=== PATIENT | female | born 1995 | race Caucasian/White ===

== ENCOUNTER 2018-11-28 18:53 | Outpatient (CLI) | payer MEDICAID | END 2018-11-28 20:55 | disposition home or self-care (01) | LOC: LC 18:53 | PROVIDERS: ATTEND Student in an Organized Health Care Education/Training Program | PROC: 4A1HXCZ Monitoring of Products of Conception, Cardiac Rate, External Approach (ICD-10-PCS; principal; 2018-11-28) | DX: O47.03 False labor before 37 completed weeks of gestation, third trimester (principal); Z3A.36 36 weeks gestation of pregnancy | CPT/HCPCS: 82962 ==

== ENCOUNTER 2018-12-10 06:23 | Inpatient (IN) | payer MEDICAID ==
[2018-12-07 10:21] LABS: ABSOLUTE LYMPHOCYTES (AUTO) 3.2 10^3/uL (0.5-4.7); ABSOLUTE MONOCYTES (AUTO) 0.6 10^3/uL (0.1-1.4); ABSOLUTE NEUT (AUTO) 8.1 10^3/uL (1.7-8.2); BASOPHILS % (AUTO) 0.4 % (0-2); EOSINOPHILS % (AUTO) 0.4 % (0-6); HEMATOCRIT 37.1 % (36.0-47.0); HEMOGLOBIN 12.5 g/dL (12.0-15.5); LYMPHOCYTES % (AUTO) 27.1 % (13-45); MEAN CORPUSCULAR HEMOGLOBIN 29.6 pg (27.0-33.4); MEAN CORPUSCULAR HGB CONC 33.7 g/dL (32.0-36.0); MEAN CORPUSCULAR VOLUME 88 fl (80-97); MONOCYTES % (AUTO) 4.9 % (3-13); PLATELET COUNT 240 10^3/uL (150-450); RED BLOOD COUNT 4.22 10^6/uL (3.72-5.28); SEGMENTED NEUTROPHILS % (AUTO) 67.2 % (42-78); TOTAL CELLS COUNTED % (AUTO) 100 %
[2018-12-07 10:27] LABS: APPEARANCE,URINE CLOUDY; BILIRUBIN,URINE NEGATIVE (NEGATIVE); COLOR,URINE AMBER; GLUCOSE, URINE NEGATIVE (NEGATIVE); KETONES,URINE NEGATIVE (NEGATIVE); LEUKOCYTE ESTERASE,URINE LARGE (NEGATIVE); NITRITE,URINE NEGATIVE (NEGATIVE); PROTEIN,URINE 30 mg/dL (NEGATIVE); URINE SPECIFIC GRAVITY 1.021; UROBILINOGEN,URINE NEGATIVE mg/dL (<2.0)
[2018-12-07 10:37] LABS: URINE AMPHETAMINES SCREEN NEGATIVE; URINE BARBITURATES SCREEN NEGATIVE; URINE BENZODIAZEPINES SCREEN NEGATIVE; URINE COCAINE SCREEN NEGATIVE; URINE MARIJUANA (THC) SCREEN NEGATIVE; URINE METHADONE SCREEN NEGATIVE; URINE PHENCYCLIDINE SCREEN NEGATIVE
[~2018-12-10 06:23] MED LIST: CEFAZOLIN SODIUM 2 GM in DEXTROSE 5%-WATER 100 ML IV PRN; LIDOCAINE 0.5% INJ-PF (5 MG/ML) 50 ML SDV SUBCUT PRN; RINGERS SOLUTION,LACTATED 1,000 ML IV PRN
[2018-12-10] MEDS ORDERED: DIPHENHYDRAMINE HCL 50 MG/ML VIAL IV PRN (08:23)
[2018-12-10] MEDS ORDERED: PROMETHAZINE HCL INJ 25 MG/1 ML VIAL IV PRN ×3 (08:23→11:04)
[2018-12-10] MEDS ORDERED: MEPERIDINE HCL/PF INJ 25 MG/1 ML DISP.SYRIN IV PRN (08:23)
[2018-12-10] MEDS ORDERED: FENTANYL CITRATE INJ/PF 100 MCG/2 ML AMPUL IV PRN ×2 (08:23)
[2018-12-10] MEDS: LACTATED RINGERS 1000 ML IV PRN ×2 (08:47→21:15)
[2018-12-10] MEDS ORDERED: FENTANYL CITRATE INJ/PF 100 MCG/2 ML AMPUL ONE ×2 (09:14→11:09)
[2018-12-10] MEDS ORDERED: OXYTOCIN 10 UNIT/ML VIAL ONE (09:14)
[2018-12-10] MEDS ORDERED: MIDAZOLAM 2 MG/2 ML INJ ONE (09:15)
[2018-12-10] MEDS ORDERED: EPHEDRINE SULFATE INJ 50 MG/1 ML AMPULE ONE (09:15)
[2018-12-10] MEDS ORDERED: ACETAMINOPHEN 1,000 MG/100 ML RTUPB IV PRN (11:04)
[2018-12-10] MEDS ORDERED: OXYCODONE-ACETAMINOPHEN 5-325 MG TABLET PO PRN (11:04)
[2018-12-10] MEDS ORDERED: SIMETHICONE 80 MG TAB.CHEW PO PRN (11:04)
[2018-12-10] MEDS ORDERED: OXYTOCIN/NORMAL SALINE 20 UNIT/1,000 ML RTUINJ IV PRN (11:04)
[2018-12-10] MEDS ORDERED: HYDROMORPHONE HCL INJ/PF 2 MG/ML AMPULE IV PRN (11:04)
[2018-12-10] MEDS ORDERED: ACETAMINOPHEN 325 MG TABLET PO PRN (11:04)
[2018-12-10] MEDS ORDERED: NORMAL SALINE 1000 ML 1,000 ML IV PRN (11:04)
[2018-12-10] MEDS ORDERED: MEASLES,MUMPS&RUBELLA VACC/PF 0.5 ML VIAL SUBCUT PRN (11:04)
[2018-12-10] MEDS ORDERED: DIPH/PERTUSS(ACELL)/TETANUS VAC/PF 0.5 ML SYR (>=10YO) IM PRN (11:04)
[2018-12-10] MEDS: FENTANYL CITRATE INJ/PF 100 MCG/2 ML AMPUL IV PRN ×2 (11:10→12:48)
--- NOTE | 2018-12-10 11:13 | PDOC DELIVERY SUMMARY ---
Delivery Summary - Maternal Hx : III Hx # Term Pregnancies: 1 Hx # Pregnancies: 0 Hx Total # of Abortions (Sponateous & Elective): 1 LYNN: 12/17/18 Gestational Age: 39 Ruptured Membranes: AROM Time of Rupture: 10:26 Fluids: Clear - Delivery Presentation: Vertex Heart Rate Monitoring: Done Pre-Operatively Support Person Present: Yes Location: OR : Scheduled, Repeat Placenta: Within Normal Limits Delivery of Placenta Date: 12/10/18 Delivery of Placenta Time: 10:27 - Medications Type of Anesthesia:: Spinal - Assess and Care Baby 1 Female Delivery of Infant Date: 12/10/18 Delivery of Time: 10:27 at 1 minute: 8 at 5 minutes: 9 Preprinted Number On Band: [id number] Infant Skin to Skin: Yes Skin to Skin (Mins): 2 To Nursery At: 10:33 Mode of Transport: Bassinet - Delivery Personnel International Marketing Specialist: JOANIE ZUNIGA RN: SULMA OWENS MD: MIRNA PITT
--- NOTE | 2018-12-10 11:14 | Operative Report ---
Operative Report DATE OF SURGERY: 12/10/18 PREOPERATIVE DIAGNOSIS: Patient desires repeat to prevent risk of clint rine rupture POSTOPERATIVE DIAGNOSIS: Same OPERATION: Repeat via low transverse uterine incision SURGEON: MIRNA PITT ANESTHESIA: Spinal TISSUE REMOVED OR ALTERED: Placenta COMPLICATIONS: None ESTIMATED BLOOD LOSS: 500 cc INTRAOPERATIVE FINDINGS: Viable female with normal uterus tubes and ovaries PROCEDURE: Patient was taken to the OR and placed in supine position after her spinal anesthesia. She is prepared and draped in sterile fashion. Mason was placed for drainage of the bladder. Low transverse incision was made and carried down the level of the fascia. The fascial incision was made with knife and extended bilaterally with curved Stephens scissors. The fascia was off the rectus muscles using sharp and blunt dissection. The rectus muscles are in the midline. The peritoneum was entered without incident. Bladder blade was placed in uterine segment was identified. A low transverse incision was made creating a bladder flap. Bladder blade was placed low transverse uterine incision was made with the knife and extended with fingertips. The baby was delivered with some fundal pressure. Mouth and nose were suctioned free. The cord is doubly clamped and cut. Baby is passed off to the netting weaver in attendance. The placenta was manually extracted with trailing membranes. The uterus was externalized wrapped in a moist lap sponge. Uterine contents wiped free. Uterus was closed with a running locking layer of 0 chromic suture using the second layer to imbricate the first completing a double layer closure of the uterus. The serosa was closed with a running 2-0 chromic stitch. The pelvis was irrigated and suctioned free of fluid the uterus was replaced in the abdomen. The abdominal wall peritoneum was closed with running 2-0 chromic stitch. Fascia was closed with a running 0 Vicryl in 2 segments. Marino's layer was brought together with 0 plain gut stitch and the skin was closed with running subcuticular 4-0 undyed Vicryl stitch. The wound was dressed mother and baby did well.
[2018-12-10] MEDS ORDERED: ACETAMINOPHEN 1,000 MG/100 ML RTUPB IV ONE (11:16)
[2018-12-10] MEDS ORDERED: HYDROMORPHONE HCL INJ/PF 2 MG/ML AMPULE ONE (11:26)
[2018-12-10] MEDS ORDERED: KETOROLAC TROMETHAMINE INJ/PF 30 MG/1 ML SDV ONE (12:33)
[2018-12-10] MEDS: OXYCODONE-ACETAMINOPHEN 5-325 MG TABLET PO PRN ×2 (14:32→18:44)
[2018-12-10] MEDS: KETOROLAC TROMETHAMINE INJ/PF 30 MG/1 ML SDV IV SCH ×2 (17:13→22:03)
[2018-12-10] MEDS: DOCUSATE SODIUM 100 MG CAPSULE PO SCH (17:35)
[2018-12-11] MEDS: OXYCODONE-ACETAMINOPHEN 5-325 MG TABLET PO PRN ×3 (01:23→14:48)
[2018-12-11] MEDS: KETOROLAC TROMETHAMINE INJ/PF 30 MG/1 ML SDV IV SCH (05:46)
[2018-12-11 06:12] LABS: HEMATOCRIT 28.7 % (36.0-47.0); HEMOGLOBIN 9.8 g/dL (12.0-15.5); MEAN CORPUSCULAR HEMOGLOBIN 30.3 pg (27.0-33.4); MEAN CORPUSCULAR HGB CONC 34.1 g/dL (32.0-36.0); MEAN CORPUSCULAR VOLUME 89 fl (80-97); PLATELET COUNT 189 10^3/uL (150-450); RED BLOOD COUNT 3.23 10^6/uL (3.72-5.28); RED CELL DISTRIBUTION WIDTH 14.5 % (11.5-14.0); WHITE BLOOD COUNT 10.2 10^3/uL (4.0-10.5)
[2018-12-11] MEDS: DOCUSATE SODIUM 100 MG CAPSULE PO SCH ×2 (09:27→17:37)
[2018-12-11] MEDS: PRENATAL VITAMIN W DHA CAPSULE PO SCH (09:27)
--- NOTE | 2018-12-11 09:30 | PDOC PROGRESS REPORT ---
Subjective-OB Progress Note for:: 12/11/18 Subjective: Sitting up in bed, talking very little, pain under control, eating well, no gas, breast/bottle feeding Physical Exam (OB) Vital Signs: Temp Pulse Resp BP Pulse Ox 97.8 F 100 16 109/75 98 12/11/18 08:09 12/11/18 08:09 12/11/18 08:09 12/11/18 08:09 12/11/18 08:09 Intake & Output 12/10/18 12/11/18 12/12/18 06:59 06:59 06:59 Intake Total 1000 Output Total 2300 Balance -1300 - PIH/Pre-Eclampsia Clonus: Negative Headache: Absent Epigastric Pain: No Visual Changes: No - Dressing Removed: No Incision: Dressing - Lochia Lochia Amount: Scant < 10 ml Lochia Color: Rubra/Red - Abdomen Description: Tender, Soft, Round Hernia Present: No Fundal Description: Firm Fundal Height: u/u - u/2 Objective-Diagnostic Laboratory: 12/11/18 05:59 12/11/18 05:59 WBC 10.2 RBC 3.23 L Hgb 9.8 L Hct 28.7 L MCV 89 MCH 30.3 MCHC 34.1 RDW 14.5 H Plt Count 189 Assessment and Plan(PN) - Assessment and Plan (1) Anemia Qualifiers: Other causes of anemia: acute posthemorrhagic Is this a current diagnosis for this admission?: Yes (3) Depression Qualifiers: Depression Type: unspecified Qualified Code(s): F32.9 - Major depressive disorder, single episode, unspecified Is this a current diagnosis for this admission?: Yes (4) Status post repeat low transverse section Is this a current diagnosis for this admission?: Yes - Time Spent with Patient Time with patient: Less than 15 minutes Medications reviewed and adjusted accordingly: Yes - Disposition Anticipated Discharge: Home Within: within 24 hours
[2018-12-11] MEDS ORDERED: (PENDING PHARMACY ID) (Pnv119/Iron Fum/Folic/Docusate [Prenatal 19 Tablet] 1 EACH) PO SCH (10:00)
[2018-12-11] MEDS: IBUPROFEN 800 MG TABLET PO SCH ×3 (13:02→23:30)
[2018-12-12] MEDS: OXYCODONE-ACETAMINOPHEN 5-325 MG TABLET PO PRN (01:33)
[2018-12-12] MEDS: IBUPROFEN 800 MG TABLET PO SCH (05:41)
[2018-12-12 08:19] VITALS: BP 107/63
[2018-12-12] MEDS: DOCUSATE SODIUM 100 MG CAPSULE PO SCH (10:25)
[2018-12-12] MEDS: PRENATAL VITAMIN W DHA CAPSULE PO SCH (10:25)
--- NOTE | 2018-12-12 10:54 | PDOC DISCHARGE SUMMARY ---
Impression - Admit/DC Date/PCP Admission Date/Primary Care Provider: 12/10/18 06:23 MIRNA PITT MD Discharge Date: 12/12/18 - Discharge Diagnosis (1) Status post repeat low transverse section Is this a current diagnosis for this admission?: Yes - Additional Information Resuscitation Status: Full Code Discharge Diet: As Tolerated, Regular Discharge Activity: Activity As Tolerated, Balance Activity w/Rest, No Driving, No Lifting Over 10 Pounds, Pelvic Rest, No tub bath, Walk Frequently Referrals: MIRNA PITT MD [Primary Care Provider] - Prescriptions: Oxycodone HCl/Acetaminophen [Percocet 5-325 mg Tablet] 2 tab PO Q4HP PRN #20 tablet PRN Reason: For Pain Scale 3-5 Ibuprofen [Motrin 800 mg Tablet] 800 mg PO Q8HP PRN #30 tablet PRN Reason: For Pain Scale 1-3 Docusate Sodium [Colace 100 mg Capsule] 100 mg PO BID #60 capsule Ferrous Sulfate [Feosol 325 mg Tablet] 325 mg PO BID #60 tablet Home Medications: [id number]/Iron Fum/Folic/Docusate [ 19 Tablet] 1 each PO DAILY 09/08/18 Docusate Sodium [Colace 100 mg Capsule] 100 mg PO BID #60 capsule 12/12/18 Ferrous Sulfate [Feosol 325 mg Tablet] 325 mg PO BID #60 tablet 12/12/18 Ibuprofen [Motrin 800 mg Tablet] 800 mg PO Q8HP PRN #30 tablet 12/12/18 Oxycodone HCl/Acetaminophen [Percocet 5-325 mg Tablet] 2 tab PO Q4HP PRN #20 tablet 12/12/18 Results Laboratory Results: WBC 10.2 10^3/uL (4.0-10.5) 12/11/18 05:59 RBC 3.23 10^6/uL (3.72-5.28) L 12/11/18 05:59 Hgb 9.8 g/dL (12.0-15.5) L 12/11/18 05:59 Hct 28.7 % (36.0-47.0) L 12/11/18 05:59 MCV 89 fl (80-97) 12/11/18 05:59 MCH 30.3 pg (27.0-33.4) 12/11/18 05:59 MCHC 34.1 g/dL (32.0-36.0) 12/11/18 05:59 RDW 14.5 % (11.5-14.0) H 12/11/18 05:59 Plt Count 189 10^3/uL (150-450) 12/11/18 05:59 Lymph % (Auto) 27.1 % (13-45) 12/07/18 09:25 [place] % (Auto) 4.9 % (3-13) 12/07/18 09:25 Eos % (Auto) 0.4 % (0-6) 12/07/18 09:25 Baso % (Auto) 0.4 % (0-2) 12/07/18 09:25 Absolute Neuts (auto) 8.1 10^3/uL (1.7-8.2) 12/07/18 09:25 Absolute Lymphs (auto) 3.2 10^3/uL (0.5-4.7) 12/07/18 09:25 Absolute Monos (auto) 0.6 10^3/uL (0.1-1.4) 12/07/18 09:25 Absolute Eos (auto) 0.0 10^3/uL (0.0-0.6) 12/07/18 09:25 Absolute Basos (auto) 0.0 10^3/uL (0.0-0.2) 12/07/18 09:25 Seg Neutrophils % 67.2 % (42-78) 12/07/18 09:25 Urine Color ALVIN 12/07/18 09:17 Urine Appearance CLOUDY 12/07/18 09:17 Urine pH 6.0 (5.0-9.0) 12/07/18 09:17 Ur Specific [place] 1.021 12/07/18 09:17 Urine Protein 30 mg/dL (NEGATIVE) H 12/07/18 09:17 Urine Glucose (UA) NEGATIVE mg/dL (NEGATIVE) 12/07/18 09:17 Urine Ketones NEGATIVE mg/dL (NEGATIVE) 12/07/18 09:17 Urine Blood SMALL (NEGATIVE) H 12/07/18 09:17 Urine Nitrite NEGATIVE (NEGATIVE) 12/07/18 09:17 Urine Bilirubin NEGATIVE (NEGATIVE) 12/07/18 09:17 Urine Urobilinogen NEGATIVE mg/dL (<2.0) 12/07/18 09:17 Ur Leukocyte Esterase LARGE (NEGATIVE) H 12/07/18 09:17 Urine WBC (Auto) 56 /HPF 12/07/18 09:17 Urine RBC (Auto) 7 /HPF 12/07/18 09:17 Urine Bacteria (Auto) 1+ /HPF 12/07/18 09:17 Squamous Epi Cells Auto 53 /HPF 12/07/18 09:17 U Non-Squamous Epis Auto 2 /HPF 12/07/18 09:17 Urine Mucus (Auto) MOD /LPF 12/07/18 09:17 Urine Ascorbic Acid NEGATIVE (NEGATIVE) 12/07/18 09:17 Urine Opiates Screen NEGATIVE 12/07/18 09:17 Urine Methadone Screen NEGATIVE 12/07/18 09:17 Ur Barbiturates Screen NEGATIVE 12/07/18 09:17 Ur Phencyclidine Scrn NEGATIVE 12/07/18 09:17 Ur Amphetamines Screen NEGATIVE 12/07/18 09:17 U Benzodiazepines Scrn NEGATIVE 12/07/18 09:17 Urine Cocaine Screen NEGATIVE 12/07/18 09:17 U Marijuana (THC) Screen NEGATIVE 12/07/18 09:17 Blood Type O POSITIVE 12/08/18 11:20 Antibody Screen NEGATIVE 12/08/18 11:20
[2018-12-12 15:50] LABS: HSV-I IGG AB 5.23 index (0.00-0.90)
== END 2018-12-12 13:30 | disposition home or self-care (01) | DRG 787 ==
LOC: 2N 06:23
PROVIDERS: ADMIT Obstetrics & Gynecology; ATTEND Obstetrics & Gynecology
PROC: 10D00Z1 Extraction of Products of Conception, Low, Open Approach (ICD-10-PCS; principal; 2018-12-10 09:30)
DX: O34.211 Maternal care for low transverse scar from previous cesarean delivery (principal); D62 Acute posthemorrhagic anemia; Z37.0 Single live birth; O99.02 Anemia complicating childbirth; O99.344 Other mental disorders complicating childbirth; F32.9 Major depressive disorder, single episode, unspecified; Z3A.39 39 weeks gestation of pregnancy
CPT/HCPCS: 1961; 36415; 59025; 80307; 81001; 85025; 85027; 86695; 86850; 86900; 86901; 94799; J0131; J0690; J1170; J1885; J2250; J2590; J3010; J3490; J7060; J7120

== ENCOUNTER 2019-01-25 12:55 | Emergency (ER) | payer MEDICAID ==
--- NOTE | 2019-01-25 13:14 | ER Document Report ---
ED Medical Screen (RME) - General Chief Complaint: incision, abd pain Stated Complaint: LOWER ABDOMINAL PAIN Time Seen by Provider: 01/25/19 13:10 Primary Care Provider: MIRNA PITT MD [Primary Care Provider] - Follow up as needed Notes: Patient is a 23-year-old female presents to the emergency department for lower abdominal, pelvic pain. Patient voices on 12/10/2018 she did undergo a section. States she has had pain since. States she has been to [facility] multiple times and they continue to tell her that her her incision looks well intact. States they have not done an ultrasound. Patient voices it "hurts on the inside." Patient voices she still intermittently has some pink-tinged vaginal discharge. Is denying any dysuria or fevers. GENERAL: Alert, interacts well. No acute distress. ABDOMEN: Soft, bilateral pelvic and suprapubic pain noted. Non-distended. Bowel sounds present in all 4 quadrants. I have greeted and performed a rapid initial assessment of this patient. A comprehensive ED assessment and evaluation of the patient, analysis of test results and completion of the medical decision making process will be conducted by additional ED providers. I have specifically instructed the patient or family members with the patient to immediately return to any nursing staff should anything change in the patient's condition or with their chief complaint. This medical record was dictated with voice recognizing software. There may be grammatical, syntax errors that are unintended. TRAVEL OUTSIDE OF THE [place] IN LAST 30 DAYS: No - Related Data Allergies/Adverse Reactions: codeine Allergy (Intermediate, Verified 12/10/18 09:03) Hives Penicillins Allergy (Mild, Verified 12/10/18 09:03) unknown. She was a child Past Medical History - Social History Chew tobacco use (# tins/day): No Frequency of alcohol use: None Drug Abuse: None - Past Medical History Cardiac Medical History: Denies: Hx Pulmonary Embolism Pulmonary Medical History: Reports: Hx Asthma - CHILDHOOD Denies: Hx Sleep Apnea, Hx Tuberculosis Renal/ Medical History: Reports: Hx Ovarian Cysts. 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
[2019-01-25 13:30] LABS: APPEARANCE,URINE SLIGHTLY-CLOUDY; BILIRUBIN,URINE NEGATIVE (NEGATIVE); COLOR,URINE YELLOW; GLUCOSE, URINE NEGATIVE (NEGATIVE); KETONES,URINE NEGATIVE (NEGATIVE); LEUKOCYTE ESTERASE,URINE NEGATIVE (NEGATIVE); NITRITE,URINE NEGATIVE (NEGATIVE); PROTEIN,URINE NEGATIVE (NEGATIVE); UROBILINOGEN,URINE NEGATIVE mg/dL (<2.0)
--- NOTE | 2019-01-25 14:43 | ER Document Report ---
ED GI/ - General Chief Complaint: Abdominal Pain Stated Complaint: LOWER ABDOMINAL PAIN Time Seen by Provider: 01/25/19 13:10 Primary Care Provider: MIRNA PITT MD [Primary Care Provider] - Follow up as needed Notes: Patient is a 23-year-old female who presents the emergency department with a chief complaint of lower abdominal pain. Patient reports she had a on December 10, 2018 and since then she has had pain underneath and right above the surgical incision. She states that she is seen [facility] times who told her that the wound is healing well and there does not appear to be any type of problem. Patient reports at times it feels like a cramping and a sharp stabbing underneath the wound. Patient also reports having bilateral foot pain that is worse with ambulating and worse with over the past 2 years. Patient denies calf pain or redness to her lower extremities. Patient denies urinary symptoms, fever, nausea, vomiting or diarrhea. TRAVEL OUTSIDE OF THE [place] IN LAST 30 DAYS: No - Related Data Allergies/Adverse Reactions: codeine Allergy (Intermediate, Verified 12/10/18 09:03) Hives Penicillins Allergy (Mild, Verified 12/10/18 09:03) unknown. She was a child Past Medical History - General Information source: Patient - Social History Smoking Status: Unknown if Ever Smoked Chew tobacco use (# tins/day): No Frequency of alcohol use: None Drug Abuse: None Lives with: Family Family History: None Patient has suicidal ideation: No Patient has homicidal ideation: No - Past Medical History Cardiac Medical History: Denies: Hx Pulmonary Embolism Pulmonary Medical History: Reports: Hx Asthma - CHILDHOOD Denies: Hx Sleep Apnea, Hx Tuberculosis EENT Medical History: Reports: None Neurological Medical History: Reports: None Endocrine Medical History: Reports: None Renal/ Medical History: Reports: Hx Ovarian Cysts. Denies: Hx Pelvic Inflammatory Disease Malignancy Medical History: Reports: None. 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 Traumatic Medical History: Denies: Hx Fractures Review of Systems - Review of Systems Constitutional: No symptoms reported EENT: No symptoms reported Cardiovascular: No symptoms reported Respiratory: No symptoms reported Gastrointestinal: See HPI Genitourinary: No symptoms reported Female Genitourinary: No symptoms reported Musculoskeletal: No symptoms reported Skin: No symptoms reported Hematologic/Lymphatic: No symptoms reported Neurological/Psychological: No symptoms reported Physical Exam - Vital signs Vitals: Temp Pulse Resp BP Pulse Ox 98.1 F 79 16 126/89 H 98 01/25/19 13:00 01/25/19 13:00 01/25/19 13:00 01/25/19 13:00 01/25/19 13:00 Interpretation: Normal - Notes Notes: GENERAL: Well-appearing, well-nourished and in no acute distress. HEAD: Atraumatic, normocephalic. EYES: Pupils equal round and reactive to light, extraocular movements intact, sclera anicteric, conjunctiva are normal. ENT: Nares patent, oropharynx clear without exudates. Moist mucous membranes. NECK: Normal range of motion, supple without lymphadenopathy or JVD. LUNGS: Breath sounds clear to auscultation bilaterally and equal. No wheezes rales or rhonchi. HEART: Regular rate and rhythm without murmurs, rubs or gallops. ABDOMEN: Soft, there is a horizontal healed scar noted to the lower abdomen consistent with a section scar, there is no dehiscence or drainage. There is no surrounding erythema. There is mild tenderness over the scar., normoactive bowel sounds. No guarding, no rebound. No masses appreciated. BACK: No cervical, thoracic, lumbar midline tenderness. No saddle anesthesia, normal distal neurovascular exam. No CVA tenderness. GENITOURINARY: Deferred. EXTREMITIES: Normal range of motion, no pitting or edema. No clubbing or cyanosis. NEUROLOGICAL: Cranial nerves II through XII grossly intact. Normal speech, normal gait. PSYCH: Normal mood, normal affect. SKIN: Warm, Dry, normal turgor, no rashes or lesions noted. Course - Vital Signs Vital signs: Temp Pulse Resp BP Pulse Ox 98.1 F 79 16 126/89 H 98 01/25/19 13:00 01/25/19 13:00 01/25/19 13:00 01/25/19 13:00 01/25/19 13:00 - Diagnostic Test Radiology reviewed: Reports reviewed Radiology results interpreted by me: 01/25/19 15:44 Transvaginal US 01/25/19 13:12 IMPRESSION: NORMAL TRANSVAGINAL PELVIC ULTRASOUND. Discharge - Discharge Clinical Impression: Pain at surgical site Condition: Stable Disposition: HOME, SELF-CARE Additional Instructions: Today you are seen in the emergency department for pain at the surgical site. This has been present since her 2 months ago. We did obtain a pelvic ultrasound which was negative for any acute abnormality. Physical examination was reassuring as the wound appears to be healing well without significant redness, drainage or external abnormality. Please follow-up with your [facility]. Please return to the emergency department for fever, vomiting, diarrhea or any new or worsening symptoms. Referrals: MIRNA PITT MD [Primary Care Provider] - Follow up as needed
--- NOTE | 2019-01-25 15:31 | RADIOLOGY REPORT (SQ) ---
EXAM DESCRIPTION: U/S NON OB PEL TV W/DOPPLER COMPLETED DATE/TIME: 01/25/2019 3:17 pm REASON FOR STUDY: 12/10, general pelvic pain since COMPARISON: None. TECHNIQUE: Dynamic and static grayscale images acquired of the pelvis via transvaginal approach and recorded on PACS. Additional selected color Doppler and spectral images recorded. LIMITATIONS: None. FINDINGS: UTERUS: Contour normal. No mass. ENDOMETRIAL STRIPE: No focal or generalized thickening. No masses. CERVIX: No nabothian cysts. RIGHT OVARY AND DOPPLER: Normal size. No worrisome masses. Normal arterial vascular flow without evid ence for torsion. LEFT OVARY AND DOPPLER: Normal size. No worrisome masses. Normal arterial vascular flow without evide nce for torsion. FREE FLUID: None noted. OTHER: No other significant finding. MEASUREMENTS: UTERUS: 9.8 x 7.4 x 4.8 cm ENDOMETRIAL STRIPE: 0.5 cm RIGHT OVARY: 4.3 x 2.4 x 2.1 cm LEFT OVARY: 3.6 x 1.6 x 1.7 cm IMPRESSION: NORMAL TRANSVAGINAL PELVIC ULTRASOUND. TECHNICAL DOCUMENTATION: JOB ID: [id number]- All Rights Reserved Rev-07/14 Reading location - IP/workstation name: [email or web address]
[2019-01-25 16:18] VITALS: BP 124/72
== END 2019-01-25 16:18 | disposition home or self-care (01) ==
LOC: ER 12:55
DX: O90.89 Other complications of the puerperium, not elsewhere classified (principal); R10.30 Lower abdominal pain, unspecified; M79.671 Pain in right foot; M79.672 Pain in left foot; Z98.890 Other specified postprocedural states; Z88.6 Allergy status to analgesic agent; Z88.5 Allergy status to narcotic agent; Z88.0 Allergy status to penicillin
CPT/HCPCS: 76830; 81001; 81025; 93976; 99284